=== PATIENT | female | born 1995 | race African-American/Black ===

== ENCOUNTER 2023-06-05 13:38 | Emergency (ER) | payer OTHER ==
[~2023-06-05] VITALS: Ht 157.5 cm; Wt 54.4 kg
[2023-06-05 16:20] LABS: HEMATOCRIT 39.8 % (36.0-45.00); MEAN CORPUSCULAR HEMOGLOBIN 31.5 pg (27.00-32.0); MEAN CORPUSCULAR HGB CONC 32.8 g/dl (32.0-36.0); PLATELET COUNT 303 K/uL (150-450); RED BLOOD COUNT 4.14 M/uL (4.00-6.00); RED CELL DISTRIBUTION WIDTH 13.1 % (11.5-14.5)
[2023-06-05 17:08] LABS: CALCIUM 8.7 mg/dL (8.5-10.1); CREATININE SERUM 0.62 mg/dL (0.55-1.02); GFR 115.46; POTASSIUM 3.92 mEq/L (3.5-5.1)
[2023-06-05] MEDS ORDERED: DICLOFENAC SODI75 MG PO (18:06)
== END 2023-06-05 19:35 | disposition home or self-care (01) ==
LOC: ER 13:38
PROVIDERS: Nurse Practitioner Family
DX: M94.0 Chondrocostal junction syndrome [Tietze] (principal); Z91.013 Allergy to seafood